=== PATIENT | male | born 1960 | race Caucasian/White ===

== ENCOUNTER 2022-12-31 06:06 | Emergency (ER) | payer BC ==
[2022-12-31] MEDS ORDERED: Ondansetron 4 MG/2 ML SDV IVPUSH ONE ×2 (07:47→10:31)
[2022-12-31] MEDS ORDERED: Morphine 4 MG/ML Syringe IVPUSH ONE (07:47)
[2022-12-31] MEDS ORDERED: Lactated Ringers 1,000 ML IV SCH (08:00)
[2022-12-31 08:08] LABS: BASOPHILS ABSOLUTE AUTO 0.01 K/mm3 (0.01-0.08); BASOPHILS PERCENT AUTO 0.1 % (0.1-1.2); EOSINOPHILS ABSOLUTE AUTO 0.03 K/mm3 (0.04-0.54); EOSINOPHILS PERCENT AUTO 0.3 (0.8-7.0); HEMATOCRIT 44.8 % (40.1-51.0); HEMOGLOBIN 14.8 gm/dl (13.7-17.5); IMMATURE GRAN ABSOLUTE AUTO 0.02 K/mm3 (0.00-0.10); IMMATURE GRAN PERCENT AUTO 0.2 % (<=1.0); LYMPHOCYTES ABSOLUTE AUTO 0.83 K/mm3 (1.32-3.57); MEAN CORPUSCULAR HEMOGLOBIN 29.8 pg (25.7-32.2); MEAN CORPUSCULAR VOLUME 90.1 fl (79.0-92.2); MEAN PLATELET VOLUME 11.1 fl (9.4-12.3); MONOCYTES ABSOLUTE AUTO 0.44 K/mm3 (0.30-0.82); MONOCYTES PERCENT AUTO 4.2 % (5.3-12.2); NEUTROPHILS ABSOLUTE AUTO 9.06 K/mm3 (1.78-5.38); NEUTROPHILS PERCENT AUTO 87.2 % (34.0-67.9); PLATELET COUNT,PLT 187 K/mm3 (163-337); RED BLOOD CELL COUNT 4.97 M/mm3 (4.63-6.08); WHITE BLOOD CELL COUNT,WBC 10.39 K/mm3 (4.23-9.07)
[2022-12-31 08:18] LABS: ALANINE AMINOTRANSFERASE,ALT 57 U/L (16-63); ALBUMIN 3.9 g/dl (3.4-5.0); ALKALINE PHOSPHATASE 92 U/L (46-116); ANION GAP 14.1 (5-15); ASPARTATE AMNIOTRANSFERASE,AST 48 U/L (15-37); BILIRUBIN TOTAL 0.5 mg/dL (0.2-1.0); BLOOD UREA NITROGEN,BUN 29 mg/dL (7-18); BUN/CREATININE RATIO 24.2 (14-18); CALCIUM 9.4 mg/dL (8.5-10.1); CARBON DIOXIDE,CO2 24 mEq/L (21-32); CHLORIDE,CL 108 mEq/L (98-107); CREATININE 1.2 mg/dL (0.7-1.3); ESTIMATED GFR 68 mL/min (>60); GLUCOSE RANDOM 138 mg/dL (70-99); LIPASE 132 U/L (73-393); POTASSIUM,K 4.1 mEq/L (3.5-5.1); SODIUM,NA 142 mEq/L (136-145)
[2022-12-31 08:23] LABS: APPEARANCE,URINE CLEAR (Clear); BILIRUBIN,URINE NEGATIVE (Negative); COLOR,URINE YELLOW (Yellow); GLUCOSE,URINE NEGATIVE (Negative); KETONES,URINE NEGATIVE (Negative); LEUKOCYTE ESTERASE,URINE NEGATIVE (Negative); NITRITE,URINE NEGATIVE (Negative); OCCULT BLOOD,URINE TRACE-INTACT (Negative); PH,URINE 5.5 (5.0-8.0); PROTEIN,URINE TRACE (Negative); UROBILINOGEN,URINE 0.2 (0.2-1.0)
[2022-12-31] MEDS ORDERED: Morphine 2 MG/ML SYRINGE IVPUSH ONE (08:32)
[2022-12-31] MEDS ORDERED: Iopamidol 612 MG/ML 100 ML Bottle IVPUSH ONE (08:40)
[2022-12-31] MEDS ORDERED: Sodium Chloride 0.9% 10 ML Syringe FLUSH PRN (08:40)
[2022-12-31] MEDS ORDERED: fentaNYL 100 MCG/2 ML SDV IVPUSH ONE ×2 (09:18→09:58)
[2022-12-31 09:20] LABS: RBC,URINE 0-5 /hpf (0-5)
[2022-12-31 09:21] LABS: BACTERIA,URINE RARE /hpf (FEW); EPITHELIAL CELLS,URINE 0-5 /hpf (0-5); MUCUS,URINE NOT SEEN /hpf (FEW); WBC,URINE 0-5 /hpf (0-5)
[2022-12-31] MEDS ORDERED: Tamsulosin 0.4 MG Cap.ER PO ONE (09:30)
[2022-12-31] MEDS ORDERED: Acetaminophen/oxyCODONE 325-5 MG Tab PO ONE (11:02)
[2023-01-01 06:35] LABS: CALCIUM OXALATE CRYSTALS,URINE RARE
== END 2022-12-31 14:22 | disposition home or self-care (01) ==
LOC: JD.ED 06:06
DX: N13.2 Hydronephrosis with renal and ureteral calculous obstruction (principal); I10 Essential (primary) hypertension; Z79.82 Long term (current) use of aspirin; Z79.899 Other long term (current) drug therapy
CPT/HCPCS: 36415; 74177; 74177-26; 80053; 81001; 83690; 85025; 96361; 96374; 96375; 96376; 99284; 99284-25; A9270-GY; J2270; J2405; J3010; J3490; J7120; Q9967